=== PATIENT | female | born 1950 | race Caucasian/White ===

== ENCOUNTER 2019-05-14 09:05 | Emergency (ER) | payer MEDICARE, BC ==
--- OUTSIDE RECORDS SUMMARY | 2019-05-14 09:13 | XMS REPORT | Continuity of Care Document ---
:1950 External Reference #:[id number] Author Name Dameon Kelly M.D. Address [address] [place] [id number] Problems Description No Information Available Social History Type Date Description Comments Sex Unknown Cigarette Use Does Not Smoke Cigarettes ETOH Use Denies alcohol use Recreational Drug Use Denies Drug Use Exercise Type/Frequency Exercises sporadically Seat Belt/Car Seat Always uses seat belt Allergies, Adverse Reactions, Alerts Description No Known Drug Allergies Medications Active Medications SIG Qnty Indications Ordering Provider Date Metformin HCL 1 by mouth twice Unknown 1000mg a day Tablets Rosuvastatin Calcium Unknown 5mg Tablets Lisinopril 1 by mouth every Unknown 10mg Tablets day Medications Administered in Office Medication SIG Qnty Indications Ordering Provider Date PT SCRN Tbco Id as Non User Dameon Kelly M.D. 04/03/2019 Injection Immunizations Description No Information Available Vital Signs Date Vital Result Comment 04/03/2019 9:50am BP Systolic 158 mmHg BP Diastolic 82 mmHg Height 64.5 inches 5'4.50" Weight 132.00 lb BMI (Body Mass Index) 22.3 kg/m2 Last Menstrual Period 9385795 3 Parity 3 Results Description No Information Available Procedures Date Code Description Status 04/03/2019 67038 Fitting & Insertion Of Pessary/Intravaginal Support Completed Device 06/17/2018 [id number] Mammogram Completed 03/19/2014 19477800 Colonoscopy Completed Medical Devices Description No Information Available Encounters Type Date Location Provider Dx Diagnosis Office Visit 04/03/2019 [facility] Dameon Kelly, N81.11 Cystocele, midline 10:00a MZohraDZohra Assessments Date Code Description Provider 04/03/2019 N81.11 Cystocele, midline Dameon Kelly M.D. Plan of Treatment Future Appointment(s):05/02/2019 10:00 am - Dameon Kelly M.D. at [facility] Functional Status Description No Information Available Mental Status Description No Information Available Referrals Description No Information Available
--- OUTSIDE RECORDS SUMMARY | 2019-05-14 09:13 | XMS REPORT | Continuity of Care Document ---
:1950 External Reference #:[id number] Author Name Dameon Kelly M.D. Address [address] [place] [id number] Problems Active Problems Provider Date Midline cystocele Dameon Kelly M.D. Onset: 04/03/2019 Social History Type Date Description Comments Sex Unknown Cigarette Use Does Not Smoke Cigarettes ETOH Use Denies alcohol use Recreational Drug Use Denies Drug Use Tobacco Use Start: Unknown Patient has never smoked Smoking Status Reviewed: 05/02/19 Patient has never smoked Exercise Type/Frequency Exercises sporadically Seat Belt/Car Seat [...] Available Vital Signs Date Vital Result Comment 05/02/2019 10:15am BP Systolic 152 mmHg BP Diastolic 80 mmHg Height 64.5 inches 5'4.50" Weight 132.00 lb BMI (Body Mass Index) 22.3 kg/m2 Last Menstrual Period 8163280 3 Parity 3 04/03/2019 9:50am BP Systolic 158 mmHg BP Diastolic 82 mmHg Height 64.5 inches 5'4.50" Weight 132.00 lb BMI (Body Mass Index) 22.3 kg/m2 Last Menstrual Period [id number] 3 Parity 3 Results Description No Information Available Procedures Date Code Description Status 04/03/2019 01905 Fitting & Insertion Of Pessary/Intravaginal Support Completed Device 06/17/2018 [id number] Mammogram Completed 03/19/2014 99690074 Colonoscopy Completed Medical Devices Description No Information Available Encounters Type Date Location Provider Dx Diagnosis Office Visit 04/03/2019 [facility] Dameon Kelly, N81.11 Cystocele, midline 10:00a MTrudi N81.9 Female genital prolapse, unspecified Assessments Date Code Description Provider 05/02/2019 N81.11 Cystocele, midline Dameon Kelly M.D. 04/03/2019 N81.11 Cystocele, midline Dameon Kelly M.D. 04/03/2019 N81.9 Female genital prolapse, unspecified Dameon Kelly M.D. Plan of Treatment 05/02/2019 - Dameon Kelly M.D.N81.11 Cystocele, midlineComments:discussed surgery again. pt demonstrated ability to remove and replace it with good placement . trimosan prescribed.Follow up:1 year Functional Status Description No Information Available Mental Status Description No Information Available Referrals Description No Information Available
[2019-05-14 09:29] VITALS: BP 165/87
--- NOTE | 2019-05-14 10:00 | UC ---
Ear Complaint HPI - HPI Summary HPI Summary: Patient is a 68yo female presenting with left earache 2 days. Patient states she is getting over a recent cold. Denies decreased hearing. Denies drainage from the ear. Denies fever. Taking Aleve for pain relief. - History of Current Complaint Chief Complaint: UCEar Stated Complaint: EAR PAIN Hx Obtained From: Patient Pain Intensity: 8 Pain Scale Used: 0-10 Numeric - Allergies/Home Medications Allergies/Adverse Reactions: Allergies Allergy/AdvReac Type Severity Reaction Status Date / Time No Known Allergies Allergy Verified 05/14/19 09:23 Home Medications: Home Medications lisinopriL [Lisinopril 2.5 MG-] 10 mg PO DAILY 12/19/11 [History Confirmed 05/14] Amoxicillin/Clavulanate TAB* [Augmentin TAB 875*] 875 mg PO BID #10 tab [Rx] Rosuvastatin Calcium [Crestor] 5 mg PO EVERY OTHER DAY 05/14/19 [History Confirmed 05/14/19] metFORMIN* [Glucophage 1000 MG TAB *] 1,000 mg PO BID 05/14/19 [History Confirmed 05/14/19] PMH/Surg Hx/FS Hx/Imm Hx Previously Healthy: Yes - Surgical History Surgical History: Yes Surgery Procedure, Year, and Place: [facility]- BIL[facility]AL 6 YRS AGO AND PINS REMOVED - Family History Known Family History: Positive: Non-Contributory - Social History Alcohol Use: Rare Substance Use Type: None Smoking Status (MU): Never Smoked Tobacco Review of Systems All Other Systems Reviewed And Are Negative: Yes Constitutional: Positive: Negative ENT: Positive: Ear Ache - left Respiratory: Positive: Negative Cardiovascular: Positive: Negative Gastrointestinal: Positive: Negative Neurological/Mental Status: Positive: Negative Physical Exam - Summary Physical Exam Summary: Vital Signs Reviewed: Yes A+Ox3, no distress Eyes: Conjunctiva Clear ENT: Hearing grossly normal, erythema and bulging of left TM, right TM clear, moist, uvula midline, no exudate, no erythema Neck: Positive: Supple Respiratory: Positive: No respiratory distress, No accessory muscle use + CTA throughout no w/r Cardiovascular: RRR nl s1, s2 no m/r Musculoskeletal Exam: SHIELDS x 4 without difficulty Neurological: Positive: Alert Psychological: Positive: age appropriate behavior Skin: Positive: no rash, no ecchymosis Vital Signs: Initial Vital Signs Temp 99 F 05/14/19 09:25 Pulse 103 05/14/19 09:25 Resp 18 05/14/19 09:25 BP 165/87 05/14/19 09:25 Pulse Ox 99 05/14/19 09:25 Ear Complaint Course/Dx - Course Course Of Treatment: Patient with acute otitis media of left ear. I treated the patient with Augmentin and instructed to follow up with PCP if symptoms persist. Patient was understanding and agreed with treatment plan. - Differential Dx/Diagnosis Provider Diagnosis: Acute otitis media, left Discharge ED - Sign-Out/Discharge Documenting (check all that apply): Patient Departure All imaging exams completed and their final reports reviewed: No Studies - Discharge Plan Condition: Stable Disposition: HOME Prescriptions: Amoxicillin/Clavulanate TAB* [Augmentin TAB 875*] 875 mg PO BID #10 tab Patient Education Materials: Ear Infection (ED) Referrals: Kerri aMdden MD [Primary Care Provider] - If Needed Additional Instructions: Take Augmentin for treatment of your ear infection. Continue with aleve as directed for pain relief. Follow up with your primary care provider if symptoms do not resolve within 7 days. - Billing Disposition and Condition Condition: STABLE Disposition: Home
== END 2019-05-14 10:25 | disposition home or self-care (01) ==
LOC: UCEAST 09:05
DX: H66.92 Otitis media, unspecified, left ear (principal)
CPT/HCPCS: 99212; G0463

== ENCOUNTER 2024-01-14 16:03 | Observation (INO) ==
[2024-01-14 16:49] LABS: ABS Basophils 0.1 10^3/uL (0.0-0.1); ABS Eosinophils 0.1 10^3/uL (0.0-0.5); ABS Lymphocytes 1.7 10^3/uL (1.0-4.8); ABS Monocytes 0.5 10^3/uL (0.0-0.9); ABS Neutrophils 4.4 10^3/uL (1.5-7.6); Eosinophil % 1.7 %; Hematocrit 36.6 % (35-45); Hemoglobin 12.3 g/dL (11.5-14.3); Lymphocyte % 24.6 %; Mean Corpuscular Hgb Conc 33.5 g/dL (31-36); Mean Corpuscular Volume 89.6 fL (80-97); Platelet Count 263 10^3/uL (150-450); Red Blood Count 4.09 10^6/uL (3.63-4.92); White Blood Count 6.7 10^3/uL (3.8-11.8)
[2024-01-14 17:05] LABS: INR 0.94 (0.85-1.14)
[2024-01-14] MEDS: Lactated Ringers 1000 ml BAG 1,000 ML IV ONE (17:13)
[2024-01-14 17:15] LABS: Albumin 4.3 g/dL (3.2-5.2); Albumin/Globulin Ratio 1.7 (1-3); Calcium 9.9 mg/dL (8.6-10.3); Creatinine, Serum 0.89 mg/dL (0.51-0.95); Globulin 2.5 g/dL (2-4); Potassium 5.5 mmol/L (3.5-5.0); Total Bilirubin 0.3 mg/dL (0.2-1.0); Total Protein 6.8 g/dL (6.4-8.9)
[2024-01-14 18:22] LABS: Urine Appearance Clear; Urine Bilirubin Negative (Negative); Urine Blood Negative (Negative); Urine Color Colorless; Urine Glucose Negative (Negative); Urine Ketones 1+ (Negative); Urine Nitrite Negative (Negative); Urine Protein Negative (Negative); Urine Specific Gravity 1.009 (1.002-1.030); Urine Urobilinogen Negative (Negative)
[2024-01-14 18:31] LABS: High Sensitivity Troponin 1 Hr 5 pg/mL (<15)
[2024-01-14 18:47] LABS: Urine Bacteria Absent /HPF (Absent); Urine Red Blood Cell Trace(0-2/hpf) /HPF (0-Trace); Urine Squamous Epithelial Cell Present /HPF (Absent); Urine White Blood Cell 3+(>20/hpf) /HPF (0-Trace)
[2024-01-14] MEDS ORDERED: Sulfur Hexaflouride MICROSPHR 25 MG VIAL IV PRN (21:02)
[2024-01-14] MEDS ORDERED: Dextrose 50% Syringe 50 ml 25 GM/50 ML SYRINGE IV PUSH PRN (21:03)
[2024-01-15] MEDS ORDERED: fentaNYL 250 mcg/5 ml 50 MCG/ML 5 ml VIAL (250 MCG) ONE (07:52)
[2024-01-15] MEDS ORDERED: Midazolam 5 mg/5 ml VIAL 1 mg/ml 5 ml VIAL (5 mg) ONE (07:52)
[2024-01-15 08:34] LABS: Calcium 9.4 mg/dL (8.6-10.3); Creatinine, Serum 0.84 mg/dL (0.51-0.95); Potassium 5.1 mmol/L (3.5-5.0); eGFR CKD-EPI 72.9 (>60)
[2024-01-15 14:13] VITALS: BP 153/104
[2024-01-15 15:22] LABS: TSH Ultra Thyroid Stim Horm 1.81 mcIU/mL (0.34-5.60)
== END 2024-01-15 14:58 | disposition home or self-care (01) ==
LOC: ED 16:03 → EDHOLD 16:03 → MEDTELE 23:39
PROVIDERS: ADMIT Internal Medicine; ATTEND Internal Medicine